=== PATIENT | female | born 1950 ===

== ENCOUNTER 2020-08-20 11:15 | Inpatient (IN) | payer OTHER ==
[~2020-08-20] VITALS: Ht 152.4 cm; Wt 57.2 kg
[2020-08-27] MEDS ORDERED: METOPROLOL SUCC50 MG (08:45)
[2020-08-27] MEDS ORDERED: SYNTHROID75 MCG (08:45)
[2020-08-27] MEDS ORDERED: LOSARTAN POTASS25 MG (08:45)
[2020-08-27] MEDS ORDERED: ALENDRONATE SOD70 MG (08:45)
[2020-08-27] MEDS ORDERED: GABAPENTIN300 M2 (08:45)
[2020-08-27] MEDS ORDERED: VITAMIN C500 M1 (08:46)
[2020-08-27] MEDS ORDERED: DICLOFENAC SOD100 GM (08:46)
[2020-08-27] MEDS ORDERED: ROSUVASTATIN CA40 MG (08:46)
[2020-08-27] MEDS ORDERED: VITAMIN D350 MC3 (08:46)
[2020-08-27] MEDS ORDERED: PEPTO-BISM262 MG/15 (08:46)
[2020-08-27] MEDS ORDERED: CETIRIZINE HCL10 MG (08:46)
[2020-08-27] MEDS ORDERED: ALLERGY RELIEF10 MG (08:46)
== END 2020-08-28 12:15 | disposition home or self-care (01) | DRG 741 ==
LOC: O/R 08-26 06:15 → SURG 08-26 06:15 → SURH 08-26 11:15 → SURG 08-26 17:03
PROVIDERS: ADMIT Obstetrics & Gynecology Gynecologic Oncology; ATTEND Obstetrics & Gynecology Gynecologic Oncology
PROC: 0UT20ZZ Resection of Bilateral Ovaries, Open Approach (ICD-10-PCS; 2020-08-26)
PROC: 0UT70ZZ Resection of Bilateral Fallopian Tubes, Open Approach (ICD-10-PCS; 2020-08-26)
PROC: 07BC0ZZ Excision of Pelvis Lymphatic, Open Approach (ICD-10-PCS; 2020-08-26)
PROC: 0UT90ZZ Resection of Uterus, Open Approach (ICD-10-PCS; principal; 2020-08-26 16:45)
DX: C53.9 Malignant neoplasm of cervix uteri, unspecified (principal); I10 Essential (primary) hypertension